=== PATIENT | female | born 1960 | race Hispanic/Latino ===

== ENCOUNTER 2017-06-23 13:08 | Outpatient (CLI) | payer BC ==
--- NOTE | 2017-06-23 15:11 | Mammography Report ---
Augmented screening mammogram: Routine views are obtained over the breasts as well as displacement images. Comparison to her prior exam in 2016. Submuscular implants are symmetric and intact. The breast pattern is generally fatty replaced. A couple of adjacent circumscribed densities are noted in the subareolar left breast. The remainder the breast pattern bilaterally is unremarkable. No interval change is noted compared to prior exam. CAD used. Impression: Stable exam. Recommendation: Annual mammogram followup. BI-RADS CATEGORY: 2 = Benign ACR BI-RADS MAMMOGRAPHIC CODES: 0 = Needs additional imaging evaluation; 1 = Negative; 2 = Benign; 3 = Probably benign; 4 = Suspicious; 5 = Malignant; 6 = Known biopsy-proven malignancy COMMENT: 1. Dense breast tissue, i.e., adenosis, fibrocystic changes, etc., may obscure an underlying neoplasm. 2. Approximately 10% of cancers are not detected with mammography. 3. A negative mammography report should not delay biopsy if a clinically suspicious mass is present.
== END 2017-06-23 13:09 | disposition home or self-care (01) ==
LOC: SPVWC 13:08
DX: Z12.31 Encounter for screening mammogram for malignant neoplasm of breast (principal); Z98.82 Breast implant status
CPT/HCPCS: 77067; G0202

== ENCOUNTER 2018-10-01 09:14 | Outpatient (CLI) | payer BC ==
--- NOTE | 2018-10-01 11:23 | Mammography Report ---
Augmented screening mammogram: Standard imaging over the breasts as well as displacement images are obtained. The implants are symmetric and intact. There is a generally intermediate density fibroglandular pattern bilaterally. 2 adjacent circumscribed nodules are noted in the left retroareolar region. The findings are not otherwise remarkable. There are no interval changes when compared to prior exam of May 2017. CAD is not captured. Impression: Stable exam. Recommendation: Annual mammogram followup. BI-RADS CATEGORY: 2 = Benign ACR BI-RADS MAMMOGRAPHIC CODES: 0 = Needs additional imaging evaluation; 1 = Negative; 2 = Benign; 3 = Probably benign; 4 = Suspicious; 5 = Malignant; 6 = Known biopsy-proven malignancy COMMENT: 1. Dense breast tissue, i.e., adenosis, fibrocystic changes, etc., may obscure an underlying neoplasm. 2. Approximately 10% of cancers are not detected with mammography. 3. A negative mammography report should not delay biopsy if a clinically suspicious mass is present.
== END 2018-10-01 09:15 | disposition home or self-care (01) ==
LOC: SPVWC 09:14
PROVIDERS: ATTEND Nurse Practitioner Women's Health
DX: Z12.31 Encounter for screening mammogram for malignant neoplasm of breast (principal)
CPT/HCPCS: 77067

== ENCOUNTER 2021-01-18 10:36 | Outpatient (CLI) | payer BC ==
--- NOTE | 2021-01-21 09:27 | Mammography Report ---
DIGITAL SCREENING MAMMOGRAM WITH CAD, 01/18/2021 INDICATION: Routine screening mammography. TECHNIQUE: Digital bilateral 2D mammography was obtained in the craniocaudal and mediolateral obliq ue projections. This examination was interpreted with the benefit of Computer-Aided Detection analysi s. COMPARISON: 11/16/2019 FINDINGS: Breast Density: The breasts are almost entirely fatty. There is no evidence of dominant mass, suspicious calcifications or architectural distortion in eithe r breast. Previous bilateral breast augmentation. Stable small left breast nodules. IMPRESSION: Follow up recommendation: Routine yearly BI-RADS Category 2: Benign. A "normal" or negative report should not discourage follow up or biopsy of a clinically significant f inding. A written summary of these findings will be mailed to the patient. The patient will be entered into a mammography reporting system which will generate a reminder letter for the patient's next appointmen t at the appropriate interval. The [employer] recommends yearly mammograms starting at age 40 and continuing as l teddy as a woman is in good health. Breast MRI is recommended for women with an approximate 20-25% or greater lifetime risk of breast cancer, including women with a strong family history of breast or ova yuni cancer or who have been treated for Hodgkin's disease. Signer Name: Domenic Patrick MD Signed: 01/21/2021 9:23 AM Workstation Name: [id number]
== END 2021-01-18 10:37 | disposition home or self-care (01) ==
LOC: SPVWC 10:36
PROVIDERS: ATTEND Family Medicine
DX: Z12.31 Encounter for screening mammogram for malignant neoplasm of breast (principal)
CPT/HCPCS: 77067

== ENCOUNTER 2022-02-06 14:07 | Outpatient (CLI) | payer BC ==
--- NOTE | 2022-02-06 16:51 | Mammography Report ---
DIGITAL SCREENING MAMMOGRAM WITH CAD, 02/06/2022 CLINICAL INFORMATION / INDICATION: Routine screening mammography. Z12.31 TECHNIQUE: Digital bilateral 2D mammography was obtained in the craniocaudal and mediolateral obliqu e projections. This examination was interpreted with the benefit of Computer-Aided Detection analysis . COMPARISON: 01/18/2021, 11/16/2019 FINDINGS: Breast Density: The breasts are almost entirely fatty. No dominant mass, suspicious calcifications, or architectural distortion in either breast. Prepectoral silicone implants are again seen. There is unchanged anterior 3:00 left breast nodularity . IMPRESSION: No mammographic evidence of malignancy. Follow up recommendation: Routine yearly screening mammogram. BI-RADS Category 2: BENIGN. A "normal" or negative report should not discourage follow up or biopsy of a clinically significant f inding. A written summary of these findings will be mailed to the patient. The patient will be entered into a mammography reporting system which will generate a reminder letter for the patient's next appointmen t at the appropriate interval. The [employer] recommends yearly mammograms starting at age 40 and continuing as l teddy as a woman is in good health. Breast MRI is recommended for women with an approximate 20-25% or greater lifetime risk of breast cancer, including women with a strong family history of breast or ova yuni cancer or who have been treated for Hodgkin's disease. Signer Name: Dean Parham MD Signed: 02/06/2022 4:47 PM Workstation Name: [id number]
== END 2022-02-06 14:08 | disposition home or self-care (01) ==
LOC: MAMMO 14:07
PROVIDERS: ATTEND Family Medicine
DX: Z12.31 Encounter for screening mammogram for malignant neoplasm of breast (principal)
CPT/HCPCS: 77067